=== PATIENT | female | born 1950 | race Caucasian/White ===

== ENCOUNTER 2017-05-28 05:33 | Inpatient (IN) | payer OTHER, MEDICARE ==
[~2017-05-28] VITALS: Ht 162.6 cm; Wt 51.6 kg
[2017-05-28] VITALS (7 sets, daily range): BP systolic 98–128; BP diastolic 52–74; PULSE 69–93; RESP 16–20; TEMP 96–98.6; O2SAT 94–100
[~2017-05-28 05:33] MED LIST: CALTCHW4 PO; CHOL1CAP6 PO; CLON1 PO; CYAN1000P SQ; DILA2TAB4 PO; DOCU1CAP39 PO; ESTR2TAB PO; FIORIC PO; PERI8.6T PO; SUMA50 PO; SUMA6P SQ; Z.0.COMMODE-3:1; Z.0.WALKERFRONT
[2017-05-28] MEDS ORDERED: SODIUM CHLOR 0.9% 1000 ML INJ 1,000 ML IV ONE ×2 (05:56→08:15)
[2017-05-28] MEDS ORDERED: SODIUM CHLORIDE 0.9% FLUSH 10 ML FLUSH IVF PRN (06:00)
[2017-05-28] MEDS ORDERED: ONDANSETRON HCL 4 MG/2 ML VIAL IVP ONE (06:00)
--- NOTE | 2017-05-28 06:02 | PD ---
HPI Chief Complaint: GI Complaint Time Seen by Provider: 05:56 Travel History International Travel<30 days: No Contact w/Intl Traveler<30days: No Traveled to known affect area: No History of Present Illness HPI 67-year-old female presents to the emergency department by private transportation for complaint of 12 hours of nausea vomiting diarrhea and mild abdominal discomfort. Patient states she's vomited continuously for the past 12 hours with multiple episodes of watery diarrhea. No report of hematemesis or coffee-ground emesis. No report of melena or hematochezia. Patient states yesterday morning she and her ate at a local restaurant and after eating did not feel well. Her has felt ill as well but has had nausea but no vomiting. Patient denies fever or chills. Patient has history of migraine and tension headache and previous back surgery. Patient also has history of hypothyroidism. Patient has had decreased urine output. Patient is unable to identify other exacerbating or alleviating factors. Patient denies well water ingestion or foreign travel but is concerned of possible foodborne illness. PFSH Past Medical History Narrative Medical Hypothyroidism chronic back pain with neuropathy prior back surgery migraine tension headache versus leg syndrome tonsillectomy hysterectomy bilateral seeping oophorectomy no substance use; nursing notes reviewed Cancer: No Cardiovascular Problems: No Diabetes: No Endocrine: No Genitourinary: No Hepatitis: Yes (A (YOUTH)) Hiatal Hernia: No Immune Disorder: No Musculoskeletal: Yes (OSTEOPENIA) Neurologic: Yes (MIGRAINES, RESTLESS LEGS, RIGHT LEG NEUROPATHY) Psychiatric: No Reproductive: No Respiratory: Yes (ASTHMA (YOUTH ONLY)) Thyroid Disease: No ?: Not LMP: MENOPAUSAL Past Surgical History Abdominal Surgery: No AICD: No Cardiac Surgery: No Ear Surgery: No Endocrine Surgery: No Eye Surgery: No Genitourinary Surgery: No Gynecologic Surgery: Yes (HYSTERECTOMY, BSO, BLADDER SUSP.) Joint Replacement: No Oral Surgery: Yes (TONSILLECTOMY) Pacemaker: No Thoracic Surgery: No Social History Tobacco Use: No Substance Use: No Allergies-Medications (Allergen,Severity, Reaction): Coded Allergies: hydrochlorothiazide (Unverified Allergy, Severe, ANURIA, 05/28/17) hydrocodone (Unverified Allergy, Severe, DYSPNEA, 05/28/17) levofloxacin (Unverified Allergy, Severe, HIVES, 05/28/17) morphine (Unverified Allergy, Severe, PSYCHOTIC CHANGES, 05/28/17) nitrofurantoin (Unverified Allergy, Severe, HIVES, 05/28/17) topiramate (Unverified Allergy, Severe, HIVES, 05/28/17) tramadol (Unverified Allergy, Severe, HIVES, 05/28/17) triamterene (Unverified Allergy, Severe, ANURIA, 05/28/17) cefuroxime (Unverified Adverse Reaction, Severe, INSOMNIA, 05/28/17) celecoxib (Unverified Adverse Reaction, Severe, VOMITING, 05/28/17) chocolate flavor (Unverified Adverse Reaction, Severe, MIGRAIENS, 05/28/17) gabapentin (Unverified Adverse Reaction, Severe, ITCH, 05/28/17) ropinirole (Unverified Adverse Reaction, Severe, AGITATION, 05/28/17) Uncoded Allergies: ONIION (Adverse Reaction, Severe, MIGRAINES, 10/23/15) RED MEAT (Adverse Reaction, Severe, MIGRAINES, 10/23/15) Reported Meds & Prescriptions Reported Meds & Active Scripts Active Review of Systems Except as stated in HPI: all other systems reviewed are Neg General / Constitutional: No: Fever, Chills HENT: No: Congestion Cardiovascular: No: Chest Pain or Discomfort Respiratory: No: Shortness of Breath Gastrointestinal: Positive: Nausea, Vomiting, Diarrhea, Abdominal Pain (mild) Genitourinary: Positive: Decreased Urinary Output, No: Dysuria Musculoskeletal: No: Myalgias, Arthralgias Skin: No Rash Neurologic: Positive: Weakness Hematologic/Lymphatic: No: Lymph Node Enlargement Physical Exam Narrative GENERAL: Well-developed well-nourished ill-appearing female in no respiratory distress SKIN: Warm and dry. HEAD: Normocephalic. EYES: No scleral icterus. No injection or drainage. NECK: Supple, trachea midline. No JVD or lymphadenopathy. CARDIOVASCULAR: Regular rate and rhythm without murmurs, gallops, or rubs. RESPIRATORY: Breath sounds equal bilaterally. No accessory muscle use. GASTROINTESTINAL: Abdomen soft, non-tender, nondistended. MUSCULOSKELETAL: No cyanosis, or edema. BACK: Nontender without obvious deformity. No CVA tenderness. Data Data Last Documented VS Vital Signs Date Time Temp Pulse Resp B/P (MAP) Pulse Ox O2 Delivery O2 Flow Rate FiO2 05/28/17 06:39 98.6 84 20 98/54 (69) 100 Room Air Orders Orders Complete Blood Count With Diff (05/28/17 05:56) Comprehensive Metabolic Panel (05/28/17 05:56) Urinalysis - C+S If Indicated (05/28/17 05:56) Lipase (05/28/17 05:56) Iv Access Insert/Monitor (05/28/17 05:56) Ecg Monitoring (05/28/17 05:56) Oximetry (05/28/17 05:56) Ondansetron Inj (Zofran Inj) (05/28/17 06:00) Sodium Chlor 0.9% 1000 Ml Inj (Ns 1000 M (05/28/17 05:56) Sodium Chloride 0.9% Flush (Ns Flush) (05/28/17 06:00) Blood Culture (05/28/17 05:56) Enteric Path (Stool) (05/28/17 05:56) Ondansetron Inj (Zofran Inj) (05/28/17 07:00) Labs Laboratory Tests Test 05/28/17 06:08 White Blood Count 8.3 TH/MM3 Red Blood Count 4.03 MIL/MM3 Hemoglobin 11.7 GM/DL Hematocrit 34.8 % Mean Corpuscular Volume 86.2 FL Mean Corpuscular Hemoglobin 29.1 PG Mean Corpuscular Hemoglobin Concent 33.8 % Red Cell Distribution Width 12.0 % Platelet Count 247 TH/MM3 Mean Platelet Volume 6.8 FL Neutrophils (%) (Auto) 81.3 % Lymphocytes (%) (Auto) 14.4 % Monocytes (%) (Auto) 3.5 % Eosinophils (%) (Auto) 0.2 % Basophils (%) (Auto) 0.6 % Neutrophils # (Auto) 6.8 TH/MM3 Lymphocytes # (Auto) 1.2 TH/MM3 Monocytes # (Auto) 0.3 TH/MM3 Eosinophils # (Auto) 0.0 TH/MM3 Basophils # (Auto) 0.0 TH/MM3 CBC Comment DIFF FINAL Differential Comment Blood Urea Nitrogen 4 MG/DL Creatinine 0.68 MG/DL Random Glucose 125 MG/DL Total Protein 6.8 GM/DL Albumin 3.7 GM/DL Calcium Level 8.4 MG/DL Alkaline Phosphatase 94 U/L Aspartate Amino Transf (AST/SGOT) 20 U/L Alanine Aminotransferase (ALT/SGPT) 25 U/L Total Bilirubin 0.7 MG/DL Sodium Level 122 MEQ/L Potassium Level 2.4 MEQ/L Chloride Level 88 MEQ/L Carbon Dioxide Level 19.8 MEQ/L Anion Gap 14 MEQ/L Estimat Glomerular Filtration Rate 86 ML/MIN Lipase 202 U/L MDM Medical Decision Making Medical Screen Exam Complete: Yes Emergency Medical Condition: Yes Medical Record Reviewed: Yes Differential Diagnosis Vomiting, gastroenteritis, food borne illness, dehydration, electronic disturbance, bowel obstruction Narrative Course IV access obtained specimens collected and sent for resulting patient given 1 L normal saline bolus along with Zofran 4 mg IV care signed over to Dr Werner Sepsis Criteria SIRS Criteria (2 or more): Heart rate over 90 Lucy Martel MD May 28, 2017 06:02
[2017-05-28 06:39] LABS: AUTOMATED NEUTROPHIL # 6.8 TH/MM3 (1.8-7.7); BASOPHIL % 0.6 % (0.0-2.0); EOSINOPHIL % 0.2 % (0.0-4.0); HEMATOCRIT 34.8 % (35.0-46.0); LYMPH % 14.4 % (9.0-44.0); LYMPHOCYTE # 1.2 TH/MM3 (1.0-4.8); MEAN CELL VOLUME 86.2 FL (80.0-100.0); MEAN CORPUSCULAR HEMOGLOBIN 29.1 PG (27.0-34.0); MEAN CORPUSCULAR HGB CONC 33.8 % (32.0-36.0); MONO % 3.5 % (0.0-8.0); NEUT % 81.3 % (16.0-70.0); PLATELET COUNT 247 TH/MM3 (150-450); RED BLOOD COUNT 4.03 MIL/MM3 (4.00-5.30); WHITE BLOOD COUNT 8.3 TH/MM3 (4.0-11.0)
[2017-05-28 06:41] LABS: HEMO FLAGS DIFF FINAL
[2017-05-28 06:55] LABS: ALKALINE PHOSPHATASE 94 U/L (45-117); ALT (GPT) 25 U/L (10-53); ANION GAP 14 MEQ/L (5-15); AST (GOT) 20 U/L (15-37); BICARBONATE 19.8 MEQ/L (21.0-32.0); BLOOD UREA NITROGEN 4 MG/DL (7-18); CHLORIDE 88 MEQ/L (98-107); GLOMERULAR FILTRATION RATE 86 ML/MIN (>89); TOTAL BILIRUBIN ADULT 0.7 MG/DL (0.2-1.0)
[2017-05-28 06:56] LABS: SODIUM (NA) 122 MEQ/L (136-145)
[2017-05-28 06:57] LABS: POTASSIUM 2.4 MEQ/L (3.5-5.1)
[2017-05-28] MEDS ORDERED: ONDANSETRON HCL 4 MG/2 ML VIAL IV PUSH ONE (07:00)
[2017-05-28 07:07] LABS: BLOOD, URINE NEG (NEG); GLUCOSE,URINE NEG (NEG); KETONE, URINE 40 mg/dL (NEG); NITRITE,URINE NEG (NEG)
[2017-05-28 07:15] LABS: METHOD OF COLLECTION CLEAN CATCH; URINE COLOR YELLOW (YELLW/STRAW)
[2017-05-28 07:16] LABS: BACTERIA, URINE MOD /hpf; COMMENT (UR) CULTURE INDICATED; CULTURE IF INDICATED CULTURE INDICATED; SQUAMOUS EPITHELIAL CELL URINE 0-5 /hpf (0-5)
[2017-05-28] MEDS ORDERED: SUMA6INJ17 SQ (07:44)
[2017-05-28] MEDS ORDERED: ESTR2TAB4 PO (07:44)
[2017-05-28] MEDS ORDERED: [UNRECOGNIZED DRUG - OTHER] TOPICAL (07:44)
[2017-05-28] MEDS ORDERED: CLON1 PO (07:44)
[2017-05-28] MEDS ORDERED: BUTA1CAP PO (07:44)
[2017-05-28] MEDS ORDERED: ARMO30TA PO (07:44)
[2017-05-28] MEDS ORDERED: IMIT50TA PO (07:44)
--- NOTE | 2017-05-28 07:46 | PD ---
Data Data Last Documented VS Vital Signs Date Time Temp Pulse Resp B/P (MAP) Pulse Ox O2 Delivery O2 Flow Rate FiO2 05/28/17 07:01 16 05/28/17 06:39 98.6 84 98/54 (69) 100 Room Air Orders Orders Complete Blood Count With Diff (05/28/17 05:56) Comprehensive Metabolic Panel (05/28/17 05:56) Urinalysis - C+S If Indicated (05/28/17 05:56) Lipase (05/28/17 05:56) Iv Access Insert/Monitor (05/28/17 05:56) Ecg Monitoring (05/28/17 05:56) Oximetry (05/28/17 05:56) Ondansetron Inj (Zofran Inj) (05/28/17 06:00) Sodium Chlor 0.9% 1000 Ml Inj (Ns 1000 M (05/28/17 05:56) Sodium Chloride 0.9% Flush (Ns Flush) (05/28/17 06:00) Blood Culture (05/28/17 05:56) Enteric Path (Stool) (05/28/17 05:56) Ondansetron Inj (Zofran Inj) (05/28/17 07:00) Urine Culture (05/28/17 06:59) Sodium Chlor 0.9% 1000 Ml Inj (Ns 1000 M (05/28/17 08:15) Promethazine Inj (Phenergan Inj) (05/28/17 08:15) Potassium Chloride (Kcl) (05/28/17 08:15) Admit Order (Ed Use Only) (05/28/17 08:14) Labs Laboratory Tests Test 05/28/17 06:08 05/28/17 06:59 White Blood Count 8.3 TH/MM3 Red Blood Count 4.03 MIL/MM3 Hemoglobin 11.7 GM/DL Hematocrit 34.8 % Mean Corpuscular Volume 86.2 FL Mean Corpuscular Hemoglobin 29.1 PG Mean Corpuscular Hemoglobin Concent 33.8 % Red Cell Distribution Width 12.0 % Platelet Count 247 TH/MM3 Mean Platelet Volume 6.8 FL Neutrophils (%) (Auto) 81.3 % Lymphocytes (%) (Auto) 14.4 % Monocytes (%) (Auto) 3.5 % Eosinophils (%) (Auto) 0.2 % Basophils (%) (Auto) 0.6 % Neutrophils # (Auto) 6.8 TH/MM3 Lymphocytes # (Auto) 1.2 TH/MM3 Monocytes # (Auto) 0.3 TH/MM3 Eosinophils # (Auto) 0.0 TH/MM3 Basophils # (Auto) 0.0 TH/MM3 CBC Comment DIFF FINAL Differential Comment Blood Urea Nitrogen 4 MG/DL Creatinine 0.68 MG/DL Random Glucose 125 MG/DL Total Protein 6.8 GM/DL Albumin 3.7 GM/DL Calcium Level 8.4 MG/DL Alkaline Phosphatase 94 U/L Aspartate Amino Transf (AST/SGOT) 20 U/L Alanine Aminotransferase (ALT/SGPT) 25 U/L Total Bilirubin 0.7 MG/DL Sodium Level 122 MEQ/L Potassium Level 2.4 MEQ/L Chloride Level 88 MEQ/L Carbon Dioxide Level 19.8 MEQ/L Anion Gap 14 MEQ/L Estimat Glomerular Filtration Rate 86 ML/MIN Phosphorus Level 1.4 MG/DL Magnesium Level 1.7 MG/DL Lipase 202 U/L Urine Collection Type CLEAN CATCH Urine Color YELLOW Urine Turbidity CLEAR Urine pH 7.0 Urine Specific [place] 1.010 Urine Protein NEG mg/dL Urine Glucose (UA) NEG mg/dL Urine Ketones 40 mg/dL Urine Occult Blood NEG Urine Nitrite NEG Urine Bilirubin NEG Urine Leukocyte Esterase NEG Urine Squamous Epithelial Cells 0-5 /hpf Urine Bacteria MOD /hpf Microscopic Urinalysis Comment CULTURE INDICATED Urine Collection Time 06:59 MDM Medical Record Reviewed: Yes Supervised Visit with BRITTANEY: No Narrative Course Patient reassessed at 7:44 PM and was found to be resting comfortably the mildly tachypneic with a complaint of persistent nausea. CBC & BMP Diagram 05/28/17 06:08 Total Protein 6.8, Albumin 3.7, Calcium Level 8.4 L, Alkaline Phosphatase 94, Aspartate Amino Transf (AST/SGOT) 20, Alanine Aminotransferase (ALT/SGPT) 25, Total Bilirubin 0.7 Urinalysis shows bacteriuria. There is no anion gap. The patient will be admitted for IV hydration and antiemetics. d/w Dr Raphael. Diagnosis Primary Impression: Intractable nausea and vomiting Qualified Codes: R11.2 - Nausea with vomiting, unspecified Additional Impressions: Hyponatremia Hypokalemia Admitting Information Admitting Physician Requests: Admit Kenny Werner MD May 28, 2017 07:46
[2017-05-28] MEDS ORDERED: SODIUM CHLOR 0.9% 1000 ML INJ 1,000 ML IV SCH (08:14)
[2017-05-28] MEDS ORDERED: SENNOSIDES 8.6 MG TAB PO PRN (08:15)
[2017-05-28] MEDS ORDERED: SODIUM CHLORIDE 0.9% FLUSH 10 ML FLUSH IV FLUSH PRN (08:15)
[2017-05-28] MEDS ORDERED: LACTULOSE SYRUP 20 GM/30 ML CUP PO PRN (08:15)
[2017-05-28] MEDS ORDERED: PROMETHAZINE INJ 25 MG/ML VIAL IM ONE (08:15)
[2017-05-28] MEDS ORDERED: MAGNESIUM HYDROXIDE SUSP 30 ML CUP PO PRN (08:15)
[2017-05-28] MEDS ORDERED: POTASSIUM CHLORIDE 20 MEQ CONTROLLED RELEASE TAB PO ONE (08:15)
[2017-05-28] MEDS ORDERED: BISACODYL 10 MG SUPP RECTAL PRN (08:15)
[2017-05-28] MEDS ORDERED: NALOXONE HCL 0.4 MG/ML AMP IV PRN (08:15)
[2017-05-28 08:40] LABS: MAGNESIUM 1.7 MG/DL (1.5-2.5)
[2017-05-28] MEDS ORDERED: LORazepam 2 MG/ML VIAL IV PUSH ONE (08:45)
[2017-05-28] MEDS ORDERED: SODIUM CHLORIDE 0.9% FLUSH 10 ML FLUSH IV FLUSH SCH (09:00)
[2017-05-28] MEDS ORDERED: MAGNESIUM SULFATE 1 GM PREMIX 100 ML IV ONE (09:00)
[2017-05-28] MEDS ORDERED: POTASSIUM CHLORIDE 25 MEQ EFFERVESCENT TAB PO ONE (10:15)
[2017-05-28 13:01] LABS: BICARBONATE 23.1 MEQ/L (21.0-32.0); POTASSIUM 3.3 MEQ/L (3.5-5.1)
[2017-05-28] MEDS ORDERED: ACETAMIN 325 MG/BUTALBITAL 50 MG/CAFFEINE 40 MG TAB PO PRN (13:30)
[2017-05-28] MEDS ORDERED: ACETAMIN 325 MG/BUTALBITAL 50 MG/CAFFEINE 40 MG TAB PO ONE (14:00)
[2017-05-28] MEDS ORDERED: POTASSIUM PHOSPHATE INJ 15 MMOL in SODIUM CHLORIDE 0.9% INJ 150 ML IV ONE (16:00)
[2017-05-28 16:30] LABS: POTASSIUM 3.7 MEQ/L (3.5-5.1)
[2017-05-28 16:34] LABS: BICARBONATE 21.8 MEQ/L (21.0-32.0)
[2017-05-28] MEDS ORDERED: SODIUM CHLOR 0.45% 1000 ML INJ 1,000 ML IV SCH (18:00)
[2017-05-28] MEDS ORDERED: POTASSIUM PHOSPHATE/SODIUM PHOSPHATE 250 MG TAB PO ONE (18:00)
--- NOTE | 2017-05-28 23:41 | HHI.HP ---
HPI Service [facility] Primary Care Physician Non-Staff Admission Diagnosis Intractable Vomiting; N/V/D; HypoNa; HypoK Diagnoses: Travel History International Travel<30 Days: No Contact w/Intl Traveler <30 Da: No Traveled to Known Affected Are: No History of Present Illness 67-year-old patient with a history of hypothyroidism, migraines, who presents with acute onset nausea and vomiting around 4 PM on 05/27. She also reports constipation, which resolved with enemas yesterday around noon. She received IV fluids in the ER, and this afternoon says that her nausea is now resolved. She does have a mild headache which she says is normal for her. Denies any focal signs or symptoms. no confusion. Denies any fevers, but does report chronic chills Review of Systems Except as stated in HPI: all other systems reviewed are Neg Past Family Social History Past Medical History Hypothyroidism Migraines Past Surgical History Back surgery Reported Medications Clonazepam 1 mg at night as needed for sleep Sumatriptan 50 mg as needed She or set every 4 hours as needed for headache Estradiol 2 mg by mouth daily. [place] Thyroid 30 mg by mouth daily Voltaren gel Allergies: Coded Allergies: hydrochlorothiazide (Unverified Allergy, Severe, ANURIA, 05/28/17) hydrocodone (Unverified Allergy, Severe, DYSPNEA, 05/28/17) levofloxacin (Unverified Allergy, Severe, HIVES, 05/28/17) morphine (Unverified Allergy, Severe, PSYCHOTIC CHANGES, 05/28/17) nitrofurantoin (Unverified Allergy, Severe, HIVES, 05/28/17) topiramate (Unverified Allergy, Severe, HIVES, 05/28/17) tramadol (Unverified Allergy, Severe, HIVES, 05/28/17) triamterene (Unverified Allergy, Severe, ANURIA, 05/28/17) cefuroxime (Unverified Adverse Reaction, Severe, INSOMNIA, 05/28/17) celecoxib (Unverified Adverse Reaction, Severe, VOMITING, 05/28/17) chocolate flavor (Unverified Adverse Reaction, Severe, MIGRAIENS, 05/28/17) gabapentin (Unverified Adverse Reaction, Severe, ITCH, 05/28/17) ropinirole (Unverified Adverse Reaction, Severe, AGITATION, 05/28/17) Uncoded Allergies: ONIION (Adverse Reaction, Severe, MIGRAINES, 05/28/17) . RED MEAT (Adverse Reaction, Severe, MIGRAINES, 05/28/17) . Family History Mother from complications of osteoporosis. Father from motor vehicle accident. Social History Nonsmoker. Nondrinker. Denies illicit drugs. Physical Exam Vital Signs Vital Signs Date Time Temp Pulse Resp B/P (MAP) Pulse Ox O2 Delivery O2 Flow Rate FiO2 05/28/17 17:21 98.5 83 19 128/74 (92) 98 05/28/17 12:37 102 16 122/52 (75) 98 05/28/17 12:34 16 05/28/17 10:45 79 16 118/59 (78) 99 Room Air 05/28/17 09:30 16 05/28/17 09:30 98.1 82 16 121/52 (75) 97 Room Air 05/28/17 07:01 16 05/28/17 06:39 98.6 84 20 98/54 (69) 100 Room Air 05/28/17 06:39 20 100 Room Air 05/28/17 05:54 97.4 93 20 116/56 (76) 98 05/28/17 05:36 97.4 93 16 116/56 (76) 98 Physical Exam GENERAL: This is a well-nourished, well-developed patient, in no apparent distress. SKIN: No rashes, ecchymoses or lesions. Cool and dry. HEAD: Atraumatic. Normocephalic. No temporal or scalp tenderness. EYES: Pupils equal round and reactive. Extraocular motions intact. No scleral icterus. No injection or drainage. ENT: Nose without bleeding, purulent drainage or septal hematoma. Throat without erythema, tonsillar hypertrophy or exudate. Uvula midline. Airway patent. NECK: Trachea midline. No JVD or lymphadenopathy. Supple, nontender, no meningeal signs. CARDIOVASCULAR: Regular rate and rhythm without murmurs, gallops, or rubs. RESPIRATORY: Clear to auscultation. Breath sounds equal bilaterally. No wheezes , rales, or rhonchi. GASTROINTESTINAL: Abdomen soft, non-tender, nondistended. No hepato-splenomegaly , or palpable masses. No guarding. MUSCULOSKELETAL: Extremities without clubbing, cyanosis, or edema. No joint tenderness, effusion, or edema noted. No calf tenderness. Negative Homans sign bilaterally. NEUROLOGICAL: Awake and alert. Cranial nerves II through XII intact. Motor and sensory grossly within normal limits. Five out of 5 muscle strength in all muscle groups. Normal speech. Laboratory Laboratory Tests Test 05/28/17 06:08 05/28/17 06:59 05/28/17 12:15 05/28/17 16:10 White Blood Count 8.3 Red Blood Count 4.03 Hemoglobin 11.7 Hematocrit 34.8 Mean Corpuscular Volume 86.2 Mean Corpuscular Hemoglobin 29.1 Mean Corpuscular Hemoglobin Concent 33.8 Red Cell Distribution Width 12.0 Platelet Count 247 Mean Platelet Volume 6.8 Neutrophils (%) (Auto) 81.3 Lymphocytes (%) (Auto) 14.4 Monocytes (%) (Auto) 3.5 Eosinophils (%) (Auto) 0.2 Basophils (%) (Auto) 0.6 Neutrophils # (Auto) 6.8 Lymphocytes # (Auto) 1.2 Monocytes # (Auto) 0.3 Eosinophils # (Auto) 0.0 Basophils # (Auto) 0.0 CBC Comment DIFF FINAL Differential Comment Blood Urea Nitrogen 4 2 1 Creatinine 0.68 0.50 0.41 Random Glucose 125 131 110 Total Protein 6.8 Albumin 3.7 Calcium Level 8.4 7.8 8.0 Alkaline Phosphatase 94 Aspartate Amino Transf (AST/SGOT) 20 Alanine Aminotransferase (ALT/SGPT) 25 Total Bilirubin 0.7 Sodium Level 122 140 143 Potassium Level 2.4 3.3 3.7 Chloride Level 88 107 112 Carbon Dioxide Level 19.8 23.1 21.8 Anion Gap 14 10 9 Estimat Glomerular Filtration Rate 86 123 155 Phosphorus Level 1.4 Magnesium Level 1.7 Lipase 202 Urine Collection Type CLEAN CATCH Urine Color YELLOW Urine Turbidity CLEAR Urine pH 7.0 Urine Specific [place] 1.010 Urine Protein NEG Urine Glucose (UA) NEG Urine Ketones 40 Urine Occult Blood NEG Urine Nitrite NEG Urine Bilirubin NEG Urine Leukocyte Esterase NEG Urine Squamous Epithelial Cells 0-5 Urine Bacteria MOD Microscopic Urinalysis Comment CULTURE INDICATED Urine Collection Time 06:59 Date/Time Source Procedure Growth Status 05/28/17 06:13 Blood Peripheral Aerobic Blood Culture Pending Received 05/28/17 06:13 Blood Peripheral Anaerobic Blood Culture Pending Received 05/28/17 06:59 Urine Clean Catch Urine Culture Pending Received Result Diagram: 05/28/17 0608 05/28/17 1610 Caprini VTE Risk Assessment Caprini VTE Risk Assessment: No/Low Risk (score <= 1) Caprini Risk Assessment Model Point Value = 1 Point Value = 2 Point Value = 3 Point Value = 5 Age 41-60 Minor surgery BMI > 25 kg/m2 Swollen legs Varicose veins or History of unexplained or recurrent spontaneous Oral contraceptives or hormone replacement Sepsis (< 1 month) Serious lung disease, including pneumonia (< 1 month) Abnormal pulmonary function Acute myocardial infarction Congestive heart failure (< 1 month) History of inflammatory bowel disease Medical patient at bed rest Age 61-74 Arthroscopic surgery Major open surgery (> 45 min) Laparoscopic surgery (> 45 min) Malignancy Confined to bed (> 72 hours) Immobilizing plaster cast Central venous access Age >= 75 History of VTE Family history of VTE Factor V Leiden Prothrombin [id number] Lupus anticoagulant Anticardiolipin antibodies Elevated serum homocysteine Heparin-induced thrombocytopenia Other congenital or acquired thrombophilia Stroke (< 1 month) Elective arthroplasty Hip, pelvis, or leg fracture Acute spinal cord injury (< 1 month) Prophylaxis Regimen Total Risk Factor Score Risk Level Prophylaxis Regimen 0-1 Low Early ambulation 2 Moderate Order ONE of the following: *Sequential Compression Device (SCD) *Heparin 5000 units SQ BID 3-4 Higher Order ONE of the following medications: *Heparin 5000 units SQ TID *Enoxaparin/Lovenox 40 mg SQ daily (WT < 150 kg, CrCl > 30 mL/min) *Enoxaparin/Lovenox 30 mg SQ daily (WT < 150 kg, CrCl > 10-29 mL/min) *Enoxaparin/Lovenox 30 mg SQ BID (WT < 150 kg, CrCl > 30 mL/min) AND/OR *Sequential Compression Device (SCD) 5 or more Highest Order ONE of the following medications: *Heparin 5000 units SQ TID (Preferred with Epidurals) *Enoxaparin/Lovenox 40 mg SQ daily (WT < 150 kg, CrCl > 30 mL/min) *Enoxaparin/Lovenox 30 mg SQ daily (WT < 150 kg, CrCl > 10-29 mL/min) *Enoxaparin/Lovenox 30 mg SQ BID (WT < 150 kg, CrCl > 30 mL/min) AND *Sequential Compression Device (SCD) Assessment and Plan Assessment and Plan //Nausea, vomiting //Suspected food poisoning With hyponatremia. This has resolved. //Hyponatremia. Sodium 122 on admission. Question validity of this first lab draw. Subsequently improved to 140. Encourage free water. Patient is no longer nauseous. No neurologic signs or symptoms. Expect that if sodium really is 122 on admission, this is acute from nausea or vomiting today, Thus correction back to baseline it is appropriate. //Hypophosphatemia. Phosphorus 1.4. Likely secondary to nausea and vomiting. Replaced. //Hypokalemia. Potassium 2.4 on admission. Replaced. Resolved. Discussed Condition With patient, nurse, ED physician. Physician Certification 2 Midnight Certification Type: Continued Stay Order for Inpatient Services The services are ordered in accordance with Medicare regulations or non- Medicare payer requirements, as applicable. In the case of services not specified as inpatient-only, they are appropriately provided as inpatient services in accordance with the 2-midnight benchmark. Estimated LOS (days): 1 days is the estimated time the patient will need to remain in the hospital, assuming treatment plan goals are met and no additional complications. Post-Hospital Plan: Home Notes: patient is discharged home in good condition. Activity ad yvonne. Diet regular. Please see discharge medication list. No new medications. Follow with primary care Zev Raphael MD May 28, 2017 23:41
== END 2017-05-28 19:00 | disposition home or self-care (01) | DRG 392 ==
LOC: PHED 05:33 → PHEDA 08:16 → PH3A 12:46
PROVIDERS: ADMIT Internal Medicine; ATTEND Internal Medicine
DX: A05.9 Bacterial foodborne intoxication, unspecified (principal); E87.1 Hypo-osmolality and hyponatremia; R11.2 Nausea with vomiting, unspecified; E83.39 Other disorders of phosphorus metabolism; E87.6 Hypokalemia; E03.9 Hypothyroidism, unspecified; R82.71 Bacteriuria
CPT/HCPCS: 80048; 80053; 81001; 83690; 83735; 84100; 85025; 87040; 87086; 96361; 96374; J2405; J2550; J3475; J7030